=== PATIENT | female | born 2000 | race Caucasian/White ===

== ENCOUNTER 2018-07-04 14:29 | Inpatient (IN) | payer OTHER ==
[~2018-07-04] VITALS: Ht 162.6 cm; Wt 96.4 kg
[2018-07-04] MEDS ORDERED: PNV11TAB PO (15:04)
[2018-07-04 15:05] VITALS: BP 127/68; PULSE 102; RESP 18; Ht 162.6 cm; Wt 96.4 kg
[2018-07-04] MEDS ORDERED: ONDANSETRON 4 MG INJ IV PRN (16:00)
[2018-07-04] MEDS ORDERED: DEXTROSE 5%-0.225% NACL 1,000 ML IV SCH (16:00)
[2018-07-04] MEDS: ACETAMINOPHEN 325 MG TAB PO PRN ×2 (16:42→22:44)
[2018-07-04] MEDS: DEXTROSE 5%-0.45% NACL 1,000 ML IV SCH ×2 (17:11→18:53)
--- NOTE | 2018-07-04 17:34 | HP ---
Date/Time of Note Date/Time of Note DATE: 07/04/18 TIME: 17:32 OB - History Hx of Present Free Text/Dictation 18-year-old female 1 para 0 at 25 weeks and 5 days gestation admitted complaining of onset of nausea vomiting and diarrhea 2 AM Claims she is gone to bathroom at least 10 times for bowel movement Had multiple episodes of vomiting as well Estimated Due Date: Oct 12, 2018 : 1 Para: 0 Care: Good Care Ultrasounds: Normal mid trimester US Medical Complications: None Past Family/Social History * Past Medical, Surgical, Family and Obstetric Histories reviewed from chart. OB Admission Exam Vital Signs Vital Signs Vital Signs Date Temp Pulse Resp B/P (MAP) Pulse Ox O2 O2 Flow FiO2 Time Delivery Rate 07/04/18 100.4 102 18 127/68 Room Air 15:05 (87) Physical Exam HEENT: WNL Heart: Rhythm Normal Lungs: Clear, Equal Abdomen: WNL Extremities: Normal Reflexes: Normal Cervical Dilatation: None Effacement: 0% Station: Ballotable Membranes: Intact Heart Rate: 150's Contractions on Admission: None Last 72 hours Lab Results CBC & BMP 07/04/18 16:25 Liver Function Test 07/04/18 16:25 Alanine Aminotransferase (ALT/SGPT) 16 Albumin 4.4 Alkaline Phosphatase 111 Aspartate Amino Transf (AST/SGOT) 22 Direct Bilirubin 0.00 Total Protein 8.3 H OB Assessment/Plan Reason for admission: other (Gastroenteritis) Other Assessment: Possible gastroenteritis 25.5 weeks gestation Other plan: Patient with mildly elevated white count and left shift We will start patient on IV antibiotics Repeat CBC next JONATHON MAS MD Jul 04, 2018 17:34
[2018-07-04] MEDS ORDERED: LOPERAMIDE 2 MG CAP PO ONE (18:00)
[2018-07-04] MEDS: PIPER-TAZO 3.375 GM IV (PMX) 100 ML IVPB SCH (19:42)
[2018-07-05] MEDS ORDERED: LACTATED RINGER'S 500 ML IV ONE
[2018-07-05] MEDS: PIPER-TAZO 3.375 GM IV (PMX) 100 ML IVPB SCH ×4 (00:35→18:40)
[2018-07-05] MEDS: DEXTROSE 5%-0.45% NACL 1,000 ML IV SCH ×4 (03:18→21:53)
--- NOTE | 2018-07-05 12:19 | PN ---
Date/Time of Note Date/Time of Note DATE: 07/05/18 TIME: 12:17 OB Subjective Subjective Subjective Currently does not have complaint of nausea vomiting and or diarrhea OB Objective Objective Objective Patient is currently afebrile Vital signs are stable General physical exam is also unchanged Patient does not appears to be in acute distress Had elevated temperature at night before 200.4 and 100.2 OB Assessment/Plan Other Assessment: Gastroenteritis possibly because of bacterial contaminant Other plan: We will continue IV antibiotics Repeat CBC next day Anticipate discharge next day JONATHON MAS MD Jul 05, 2018 12:19
[2018-07-06] MEDS: PIPER-TAZO 3.375 GM IV (PMX) 100 ML IVPB SCH ×3 (00:12→11:29)
[2018-07-06] MEDS: DEXTROSE 5%-0.45% NACL 1,000 ML IV SCH (11:29)
--- NOTE | 2018-07-06 14:43 | DS ---
Date/Time of Note Date/Time of Note DATE: 07/06/18 TIME: 14:41 Obstetrical Discharge Record Final Diagnosis Final Diagnosis: not delivered Other Final Diagnosis Gastroenteritis Complications Other (Gastroenteritis) Condition on Discharge Physical Assessment Voiding: Yes Bowel Movement: Yes Breast: Soft, non-tender, Filling Fundus: Other () Abdomen and Incision: Abdomen is gravid Calf Tenderness: No Patient Condition: Good (Patient without diarrhea or nausea vomiting, will DC home on p.o. antibiotics) JONATHON MAS MD Jul 06, 2018 14:43
--- NOTE | 2018-07-06 14:44 | PD.PPDC ---
SECTIONIZER Discharge Instruction Provider Information Physician Information 18-year-old female with gastroenteritis at 25 weeks Condition [id number] Patient Condition: [id number] Good (Patient without diarrhea or nausea vomiting, will DC home on p.o. antibiotics) Activity/Restrictions [id number] Activity: [id number] Normal Activity May Shower Follow-up Follow-up with Physician: 1, 2, Day/Days Return to clinic for [id number] NIGHT SUPERVISOR Instructions: [id number] Fever greater than 101 Chills Comment: Refer back to OB triage in case of fever chills and excessive nausea vomiting JONATHON MAS MD Jul 06, 2018 14:44
[2018-07-06] MEDS ORDERED: CIPR500T4 PO (14:45)
[2018-07-06] MEDS ORDERED: CIPROFLOXACIN 500 MG TAB PO SCH (18:00)
== END 2018-07-06 15:31 | disposition home or self-care (01) | DRG 833 ==
LOC: OBT 14:29 → L-D 14:31 → OBT 17:30 → L-D 17:30 → PP1 07-06 11:59
PROVIDERS: ADMIT Obstetrics & Gynecology; ATTEND Obstetrics & Gynecology
DX: O99.612 Diseases of the digestive system complicating pregnancy, second trimester (principal); K52.9 Noninfective gastroenteritis and colitis, unspecified; Z3A.25 25 weeks gestation of pregnancy
CPT/HCPCS: 36415; 76817; 80053; 81003; 85025; 87040; 87086; 96360; 96374; G0463; J2405; J2543; J7042; J7120

== ENCOUNTER 2018-10-12 20:42 | Outpatient (CLI) | payer OTHER ==
[~2018-10-12] VITALS: Ht 162.6 cm; Wt 106.3 kg
[~2018-10-12 20:42] MED LIST: CIPR500T4 PO; PNV11TAB PO
[2018-10-12 20:50] VITALS: Ht 162.6 cm; Wt 106.3 kg
[2018-10-12 20:58] VITALS: BP 122/79; PULSE 93
--- NOTE | 2018-10-13 01:09 | TRIAGE ---
OB Triage Datetime Report Generated by CPN: 10/13/2018 01:08 Datetime: 10/13/2018 00:46 Labor Evaluation Frequency: IRREGULAR Monitor Mode: External Duration (sec)2399: 40 Pattern: Normal: <= 5 Contractions in 10 Minutes Resting Tone [place]: Relaxed Heart Rate FHR Baseline Rate: 135 Monitor Mode: External US Variability: Moderate 6-25 bpm Accelerations: 15X15 Decelerations: None Category: Category I Datetime: 10/13/2018 00:23 Monitor Mode: External US Datetime: 10/12/2018 23:40 Labor Evaluation Frequency: 2-15 Monitor Mode: External Duration (sec)2399: 40-70 Pattern: Normal: <= 5 Contractions in 10 Minutes Resting Tone [place]: Relaxed Heart Rate FHR Baseline Rate: 155 Monitor Mode: External US Variability: Moderate 6-25 bpm Accelerations: 15X15 Decelerations: None Category: Category I Datetime: 10/12/2018 22:50 Labor Evaluation Frequency: IRREGULAR Monitor Mode: External Duration (sec)2399: 40-60 Quality: Mild Pattern: Normal: <= 5 Contractions in 10 Minutes Resting Tone [place]: Relaxed Heart Rate FHR Baseline Rate: 165 Monitor Mode: External US FHR Baseline Changes: Tachycardia Variability: Moderate 6-25 bpm Accelerations: 15X15 Decelerations: None Category: Category II Datetime: 10/12/2018 22:24 Monitor Mode: External US Comments: PT REPORTED INCREASED MOVEMENT. Datetime: 10/12/2018 21:45 Stage of : OB Triage Labor Evaluation Frequency: 2-10 Monitor Mode: External Duration (sec)2399: 60-100 Quality: Mild Pattern: Normal: <= 5 Contractions in 10 Minutes Resting Tone [place]: Relaxed Heart Rate FHR Baseline Rate: 155 Monitor Mode: External US Variability: Moderate 6-25 bpm Accelerations: Prolonged Decelerations: None Category: Category I Datetime: 10/12/2018 21:39 Vaginal Exam Dilatation (cms): 0.0 Effacement (%): 0 Station: -3 Exam By: Juvenal LOTT Membrane Status: Intact Vaginal Bleeding: None Cervix, Consistency: Firm Cervix, Position: Posterior Datetime: 10/12/2018 20:55 Stage of : OB Triage Maternal Assessment Level of Consciousness: Keenly Alert, Responsive DTR's/Clonus: DTRs 2+; No Clonus Headache: Denies Blurred Vision: No Respiratory Effort: Unlabored; Regular Rhythm; Equal Expansion Breath Sounds, Left: Clear and Equal Breath Sounds, Right: Clear and Equal Nausea/Vomiting: Denies RUQ Epigastric Pain: Denies Lower Extremities Edema: None Degree: None Upper Extremities Edema: None Degree: None Facial Edema: None Temperature Route: Oral Fall Risk Assessment History of Falling: (0) No Secondary Diagnosis: (0) No Ambulatory Aid: (0) Bedrest/Nurse Assist IV Therapy: (0) No Gait: (0) Normal/Bedrest/Immobile Mental Status: (0) Oriented to Own Ability Fall Score: 0 Fall Risk Score Definition: No Risk: No action required Pain Assessment Pain Scale: 0 Pain Presence: None/Denies Pain Type: N/A Datetime: 10/12/2018 20:53 Monitor Mode: External Contraction Comments: APPLIED Monitor Mode: External US Comments: APPLIED Datetime: 10/12/2018 20:48 Time of Arrival: 10/12/2018 20:35 EGA: 40.0 Arrived By: Ambulatory Arrived From: Home Chief Complaint: NST BPP EFW Movement: Present Contractions: Denies/Absent Rupture of Membranes: Denies Vaginal Discharge: Denies Recent Sexual Intercouse: Denies Abdominal Trauma: Not Applicable Patient Complaints: None Time Provider Notified: 10/12/2018 23:00 Provider Notified: DR. LI Initial Plan: EFM, SVE, CALL OB Datetime: 07/06/2018 15:19 Monitor Mode: External Heart Rate FHR Baseline Rate: 145 Monitor Mode: External US FHR Baseline Changes: No Baseline Change Variability: Moderate 6-25 bpm Accelerations: 10X10 Decelerations: None Category: Category I Datetime: 07/06/2018 15:04 Stage of : Antepartum Temperature Route: Oral Pain Assessment Pain Scale: 0 Pain Presence: None/Denies Pain Goal: 0 Datetime: 07/06/2018 11:51 Labor Evaluation Frequency: 0 Monitor Mode: NO CONTRACTION FELT OR PALPATED Datetime: 07/06/2018 11:50 Stage of : Antepartum Temperature Route: Oral Pain Assessment Pain Scale: 0 Pain Presence: None/Denies Pain Goal: 0 Datetime: 07/06/2018 10:00 Labor Evaluation Frequency: 0 Monitor Mode: External Resting Tone [place]: Relaxed Heart Rate FHR Baseline Rate: 140 Monitor Mode: External US FHR Baseline Changes: No Baseline Change Variability: Moderate 6-25 bpm Decelerations: None Comments: aga Datetime: 07/06/2018 09:22 Assessment Type: Ongoing Assessment Maternal Assessment Level of Consciousness: Fully Conscious DTR's/Clonus: DTRs 2+; No Clonus Headache: Denies Blurred Vision: No Respiratory Effort: Unlabored; Regular Rhythm; Equal Expansion Breath Sounds, Left: Clear and Equal Breath Sounds, Right: Clear and Equal Nausea/Vomiting: Denies RUQ Epigastric Pain: Denies Facial Edema: None Fall Risk Assessment History of Falling: (0) No Secondary Diagnosis: (0) No Ambulatory Aid: (0) Bedrest/Nurse Assist IV Therapy: (20) Yes Gait: (0) Normal/Bedrest/Immobile Mental Status: (0) Oriented to Own Ability Fall Score: 20 Fall Risk Score Definition: No Risk: No action required Datetime: 07/06/2018 09:21 Assessment Type: Ongoing Assessment Maternal Assessment Level of Consciousness: Fully Conscious DTR's/Clonus: DTRs 2+; No Clonus Headache: Denies Blurred Vision: No Respiratory Effort: Unlabored; Regular Rhythm; Equal Expansion Breath Sounds, Left: Clear and Equal Breath Sounds, Right: Clear and Equal Nausea/Vomiting: Denies RUQ Epigastric Pain: Denies Facial Edema: None Fall Risk Assessment History of Falling: (0) No Secondary Diagnosis: (0) No Ambulatory Aid: (0) Bedrest/Nurse Assist Gait: (0) Normal/Bedrest/Immobile Mental Status: (0) Oriented to Own Ability Datetime: 07/06/2018 00:00 Comments: patient states good movement Datetime: 07/05/2018 22:12 Stage of : Antepartum Datetime: 07/05/2018 22:00 Comments: PATIENT REPORTS GOOD MOVEMENT Datetime: 07/05/2018 21:27 Heart Rate FHR Baseline Rate: 140 FHR Baseline Changes: No Baseline Change Variability: Moderate 6-25 bpm Decelerations: None Comments: monitoring fetus, not showing up on screen. appropriate for gestational age Datetime: 07/05/2018 21:26 Stage of : Antepartum Nausea/Vomiting: Denies Pain Presence: None/Denies Datetime: 07/05/2018 21:24 Comments: start nst Datetime: 07/05/2018 21:22 Contraction Comments: strip not recording. no contractions noted Heart Rate FHR Baseline Rate: 130 Decelerations: None Comments: aga Datetime: 07/05/2018 21:00 Monitor Mode: External Pattern: Normal: <= 5 Contractions in 10 Minutes Contraction Comments: patient denies abd cramping/pain Heart Rate FHR Baseline Rate: 145 Monitor Mode: External US FHR Baseline Changes: No Baseline Change Variability: Moderate 6-25 bpm Comments: appropriate for gestational age Datetime: 07/05/2018 20:20 Assessment Type: Ongoing Assessment Maternal Assessment Level of Consciousness: Fully Conscious Headache: Denies Blurred Vision: No Respiratory Effort: Unlabored; Regular Rhythm; Equal Expansion Breath Sounds, Left: Clear and Equal Breath Sounds, Right: Clear and Equal Nausea/Vomiting: Denies RUQ Epigastric Pain: Denies Lower Extremities Edema: None Degree: None Upper Extremities Edema: None Degree: None Facial Edema: None Fall Risk Assessment History of Falling: (0) No Secondary Diagnosis: (0) No Ambulatory Aid: (0) Bedrest/Nurse Assist IV Therapy: (20) Yes Gait: (0) Normal/Bedrest/Immobile Mental Status: (0) Oriented to Own Ability Fall Score: 20 Fall Risk Score Definition: No Risk: No action required Datetime: 07/05/2018 20:03 Temperature Route: Oral Pain Assessment Pain Scale: 0 Pain Presence: None/Denies Pain Type: N/A Datetime: 07/05/2018 20:00 Comments: patient reports good movement Datetime: 07/05/2018 18:45 Labor Evaluation Frequency: 0 Monitor Mode: External Datetime: 07/05/2018 18:00 Labor Evaluation Frequency: 0 Monitor Mode: External Datetime: 07/05/2018 17:10 Stage of : Antepartum Temperature Route: Oral Labor Evaluation Frequency: 0 Monitor Mode: External Pain Assessment Pain Scale: 0 Pain Presence: None/Denies Pain Goal: 0 Datetime: 07/05/2018 16:10 Labor Evaluation Frequency: 0 Monitor Mode: External Monitor Mode: PT STATES BABY MOVING Datetime: 07/05/2018 15:00 Labor Evaluation Frequency: none Monitor Mode: External Resting Tone [place]: Relaxed Datetime: 07/05/2018 12:16 Stage of : Antepartum Temperature Route: Oral Pain Assessment Pain Scale: 0 Pain Presence: None/Denies Pain Goal: 0 Datetime: 07/05/2018 11:00 Labor Evaluation Frequency: 0 Monitor Mode: External Datetime: 07/05/2018 10:00 Labor Evaluation Frequency: 0 Monitor Mode: External Datetime: 07/05/2018 09:08 Assessment Type: Ongoing Assessment Maternal Assessment Level of Consciousness: Fully Conscious DTR's/Clonus: DTRs 2+; No Clonus Headache: Denies Blurred Vision: No Respiratory Effort: Unlabored; Regular Rhythm; Equal Expansion Breath Sounds, Left: Clear and Equal Breath Sounds, Right: Clear and Equal Nausea/Vomiting: Denies RUQ Epigastric Pain: Denies Lower Extremities Edema: None Degree: None Upper Extremities Edema: None Degree: None Facial Edema: None Fall Risk Assessment History of Falling: (0) No Secondary Diagnosis: (0) No Ambulatory Aid: (0) Bedrest/Nurse Assist IV Therapy: (20) Yes Gait: (0) Normal/Bedrest/Immobile Mental Status: (0) Oriented to Own Ability Fall Score: 20 Fall Risk Score Definition: No Risk: No action required Datetime: 07/05/2018 09:00 Labor Evaluation Frequency: 0 Monitor Mode: External Datetime: 07/05/2018 08:55 Stage of : Antepartum Temperature Route: Oral Pain Assessment Pain Scale: 0 Pain Presence: None/Denies Pain Goal: 0 Datetime: 07/05/2018 08:53 Stage of : Antepartum Datetime: 07/05/2018 08:00 Monitor Mode: External Heart Rate FHR Baseline Rate: 145 Monitor Mode: External US FHR Baseline Changes: No Baseline Change Variability: Moderate 6-25 bpm Accelerations: 10X10 Decelerations: None Category: Category I Datetime: 07/05/2018 07:00 Labor Evaluation Frequency: none Monitor Mode: External Datetime: 07/05/2018 06:00 Labor Evaluation Frequency: none Monitor Mode: External Datetime: 07/05/2018 05:42 Resting Tone [place]: Relaxed Contraction Comments: Abdomen soft on palpation. No contractions palpated at this time. Pain Assessment Pain Scale: 0 Pain Presence: None/Denies Pain Type: N/A Pain Assessment Comments: Patient sleeping in between care. Patient appears comfortable. Datetime: 07/05/2018 05:00 Labor Evaluation Frequency: none Monitor Mode: External Datetime: 07/05/2018 04:25 Resting Tone [place]: Relaxed Contraction Comments: Abdomen soft on palpation. No contractions palpated at this time Pain Assessment Pain Scale: 0 Pain Presence: None/Denies Pain Type: N/A Pain Assessment Comments: Patient is sleeping in between care. Patient appears comfortable. Datetime: 07/05/2018 04:00 Labor Evaluation Frequency: none Monitor Mode: External Datetime: 07/05/2018 03:18 Stage of : Antepartum Temperature Route: Oral Datetime: 07/05/2018 03:16 Resting Tone [place]: Relaxed Contraction Comments: Abdomen soft on palpation. No contractions palpated. Pain Assessment Pain Scale: 0 Pain Presence: None/Denies Pain Type: N/A Pain Assessment Comments: Patient sleeping in between care. Datetime: 07/05/2018 03:00 Labor Evaluation Frequency: none Monitor Mode: External Datetime: 07/05/2018 02:24 Resting Tone [place]: Relaxed Contraction Comments: Abdomen soft on palpation. No contractions palpated. Pain Assessment Pain Scale: 0 Pain Presence: None/Denies Pain Type: N/A Pain Assessment Comments: Patient sleeping in between care. Patient appears comfortable. Datetime: 07/05/2018 02:00 Labor Evaluation Frequency: none Monitor Mode: External Datetime: 07/05/2018 01:00 Labor Evaluation Frequency: none Monitor Mode: External Datetime: 07/05/2018 00:46 Resting Tone [place]: Relaxed Contraction Comments: Abdomen soft on palpation. No contractions palpated. Pain Assessment Pain Scale: 0 Pain Presence: None/Denies Pain Type: N/A Datetime: 07/05/2018 00:45 Heart Rate FHR Baseline Rate: 150 Monitor Mode: External US (Annotations: removed) Variability: Moderate 6-25 bpm Accelerations: 10X10 Decelerations: None Comments: Some loss of contact (Annotations: Appropriate for gestational age.) Datetime: 07/05/2018 00:15 Stage of : Antepartum Temperature Route: Oral Datetime: 07/05/2018 00:12 Resting Tone [place]: Relaxed Contraction Comments: Abdomen soft on palpation. No contractions palpated at this time. Comments: Patient states she feels active movements at this time. Pain Assessment Pain Scale: 0 Pain Presence: None/Denies Pain Type: N/A Datetime: 07/05/2018 00:00 Labor Evaluation Frequency: none Monitor Mode: External Heart Rate FHR Baseline Rate: 155 Monitor Mode: External US Variability: Moderate 6-25 bpm Accelerations: Prolonged Decelerations: Variable Comments: Some loss of contact. Appropriate for gestational age. Datetime: 07/04/2018 23:47 Resting Tone [place]: Relaxed Contraction Comments: Abdomen soft on palpation. No contractions palpated. Comments: Patient states she feels active movement. Datetime: 07/04/2018 23:37 Stage of : Antepartum Datetime: 07/04/2018 23:29 Stage of : Antepartum Temperature Route: Oral Comments: Patient states she feels active movement. Pain Assessment Pain Scale: 0 Pain Presence: None/Denies Pain Type: N/A Datetime: 07/04/2018 23:00 Labor Evaluation Frequency: none Monitor Mode: External Heart Rate FHR Baseline Rate: 165 Monitor Mode: External US FHR Baseline Changes: Tachycardia Variability: Moderate 6-25 bpm Accelerations: None Decelerations: None Datetime: 07/04/2018 22:42 Contraction Comments: Abdomen soft on palpation. No contractions palpated at this time. Monitor Mode: External US (Annotations: reapplied) Datetime: 07/04/2018 22:26 Stage of : Antepartum Temperature Route: Oral Comments: Active movement noted on palpation. Patient states she feels active movement. Datetime: 07/04/2018 22:25 Heart Rate FHR Baseline Rate: 170 Monitor Mode: External US (Annotations: applied) Datetime: 07/04/2018 22:00 Labor Evaluation Frequency: none Monitor Mode: External Datetime: 07/04/2018 21:50 Resting Tone [place]: Relaxed Contraction Comments: Abdomen soft on palpation. No contractions palpated at this time. Pain Assessment Pain Scale: 4 Pain Presence: Intermittent Pain Type: Ache Pain Location: Head Pain Relief Measures: Comfort Measures Pain Assessment Comments: Patient refuses tylenol at this time. Patient states, "It's better." Datetime: 07/04/2018 21:14 Resting Tone [place]: Relaxed Datetime: 07/04/2018 21:00 Labor Evaluation Frequency: none Monitor Mode: External Datetime: 07/04/2018 20:07 Resting Tone [place]: Relaxed Contraction Comments: Abdomen soft on palpation. Pain Assessment Pain Scale: 5 Pain Presence: Intermittent Pain Type: Ache Pain Location: Head Pain Relief Measures: Comfort Measures Pain Assessment Comments: Patient refuses medication at this time Datetime: 07/04/2018 20:00 Labor Evaluation Frequency: none Monitor Mode: External Datetime: 07/04/2018 19:36 Stage of : Antepartum Assessment Type: Ongoing Assessment Maternal Assessment Level of Consciousness: Fully Conscious DTR's/Clonus: DTRs 2+; No Clonus Headache: Denies Blurred Vision: No Respiratory Effort: Unlabored; Regular Rhythm; Equal Expansion Breath Sounds, Left: Clear and Equal Breath Sounds, Right: Clear and Equal Nausea/Vomiting: Denies RUQ Epigastric Pain: Denies Lower Extremities Edema: None Degree: None Upper Extremities Edema: None Degree: None Facial Edema: None Temperature Route: Oral Fall Risk Assessment History of Falling: (0) No Secondary Diagnosis: (0) No Ambulatory Aid: (0) Bedrest/Nurse Assist IV Therapy: (20) Yes Gait: (0) Normal/Bedrest/Immobile Mental Status: (0) Oriented to Own Ability Fall Score: 20 Fall Risk Score Definition: No Risk: No action required Comments: Patient states she feels active movement. Pain Assessment Pain Scale: 0 Pain Presence: None/Denies Pain Type: N/A Pain Assessment Comments: Patient denies feeling contractions at this time Datetime: 07/04/2018 19:34 Monitor Mode: External Resting Tone [place]: Relaxed Contraction Comments: Abdomen soft on palpation. Datetime: 07/04/2018 19:12 Membrane Status: Intact Datetime: 07/04/2018 18:51 Pain Presence: None/Denies Datetime: 07/04/2018 18:07 Assessment Type: Admission Assessment Vaginal Bleeding: None Maternal Assessment Level of Consciousness: Fully Conscious DTR's/Clonus: DTRs 2+; No Clonus Headache: Denies Blurred Vision: No Respiratory Effort: Unlabored; Regular Rhythm; Equal Expansion Breath Sounds, Left: Clear and Equal Breath Sounds, Right: Clear and Equal Nausea/Vomiting: Denies RUQ Epigastric Pain: Denies Facial Edema: None Fall Risk Assessment History of Falling: (0) No Secondary Diagnosis: (0) No Ambulatory Aid: (0) Bedrest/Nurse Assist Gait: (0) Normal/Bedrest/Immobile Mental Status: (0) Oriented to Own Ability Datetime: 07/04/2018 15:08 Assessment Type: Triage Maternal Assessment Level of Consciousness: Fully Conscious DTR's/Clonus: DTRs 2+; No Clonus Headache: Denies Blurred Vision: No Respiratory Effort: Unlabored; Regular Rhythm; Equal Expansion Breath Sounds, Left: Clear and Equal Breath Sounds, Right: Clear and Equal Nausea/Vomiting: Denies RUQ Epigastric Pain: Denies Lower Extremities Edema: None Degree: None Upper Extremities Edema: None Degree: None Facial Edema: None Fall Risk Assessment History of Falling: (0) No Secondary Diagnosis: (0) No Ambulatory Aid: (0) Bedrest/Nurse Assist IV Therapy: (0) No Gait: (0) Normal/Bedrest/Immobile Mental Status: (0) Oriented to Own Ability Fall Score: 0 Fall Risk Score Definition: No Risk: No action required Datetime: 07/04/2018 15:07 Time of Arrival: 07/04/2018 14:25 EGA: 25.5 Arrived By: Ambulatory Arrived From: Office Chief Complaint: N/V DIARRHEA AND ABD PAIN Movement: Present Contractions: Denies/Absent Rupture of Membranes: Denies Vaginal Bleeding: None Vaginal Discharge: Denies Recent Sexual Intercouse: Denies Abdominal Trauma: Not Applicable Patient Complaints: Other Initial Plan: NST
--- NOTE | 2018-10-13 04:55 | PN ---
Triage Information Date/Time October 13, 2018 Reason for visit: Here today for NST BPP due to postdates Weeks of Gestation 40 weeks gestation /Para 1 para 0 Diabetes: none Hypertention: none Additional information 18-year-old G1, P0 with IUP at 40 weeks presented for NST/BPP due to postdates . She denies any leaking of fluid, vaginal bleeding or decreased movement or any other complaints. Objective Vital Signs Date Temp Pulse Resp B/P (MAP) Pulse Ox O2 O2 Flow FiO2 Time Delivery Rate 10/12/18 98.4 93 122/79 Room Air 20:58 (93) Heart Rate: 130's Heart Rate Comments Category 1 Contractions: None Exam Appearance: Alert and oriented x4 does not appear to be in any acute distress Abdomen: Soft, gravid, fundal height consider gestational age NST: Category 1 Vaginal exam 0/0/-3 Results/Medications Imaging Results PROCEDURE: US OB biophysical profile. CLINICAL INDICATION: Maternal pain TECHNIQUE: Multiple sonographic images of the pelvis were obtained. The images were reviewed on a PACS workstation. COMPARISON: None FINDINGS: Noted is a single intrauterine gestation in cephalic lie with positive heart beat. The amniotic fluid index measures 8.5 cm. Placenta is anterior grade II. Biophysical profile: movement 2/2 tone 2/2. breathing 2/2 ESSIE 2/2 Total 12/01 IMPRESSION: Normal biophysical profile. Disposition: Discharge Assessment/Plan IUP at 40 weeks Postdate Not in labor, no evidence of problem testing including NST/BPP reassuring Patient discharged home in stable condition with a plan to return to triage again in 3 days for NST/BPP I recommended the patient to be seen by her primary OB as well within 48 hours after discharge from the hospital with a strict labor precautions kick count Patient verbalized understanding. All questions were answered to patient with satisfaction. MELINDA MARTINES MD Oct 13, 2018 04:55
== END 2018-10-13 00:57 | disposition home or self-care (01) ==
LOC: OBT 20:42 → L-D 20:43 → OBT 10-13 00:57
PROVIDERS: ATTEND Obstetrics & Gynecology
DX: O36.8330 Maternal care for abnormalities of the fetal heart rate or rhythm, third trimester, not applicable or unspecified (principal); O48.0 Post-term pregnancy; Z3A.40 40 weeks gestation of pregnancy
CPT/HCPCS: 76815; 76818; Z7500; G0463

== ENCOUNTER 2018-10-17 10:27 | Inpatient (IN) | payer OTHER ==
[~2018-10-17] VITALS: Ht 165.1 cm; Wt 106.8 kg
[~2018-10-17 10:27] MED LIST changes: -CIPR500T4 PO
--- NOTE | 2018-10-17 10:39 | TRIAGE ---
OB Triage Datetime Report Generated by CPN: 10/17/2018 10:39 Datetime: 10/17/2018 10:17 Assessment Type: Triage Time of Arrival: 10/17/2018 10:17 EGA: 40.5 Arrived By: Ambulatory Arrived From: Home Chief Complaint: POST DATES WITH BACK PAIN Movement: Present Contractions: Denies/Absent Rupture of Membranes: Denies Vaginal Discharge: Denies Recent Sexual Intercouse: Denies Abdominal Trauma: Not Applicable Additional Patient Complaints: NONE Time Provider Notified: 10/17/2018 10:17 Provider Notified: JEN Initial Plan: MONITOR Maternal Assessment Level of Consciousness: Keenly Alert, Responsive DTR's/Clonus: DTRs 2+; No Clonus Headache: Denies Blurred Vision: No Respiratory Effort: Unlabored; Regular Rhythm; Equal Expansion Breath Sounds, Left: Clear and Equal Breath Sounds, Right: Clear and Equal Nausea/Vomiting: Denies RUQ Epigastric Pain: Denies Lower Extremities Edema: None Degree: None Upper Extremities Edema: None Degree: None Facial Edema: None Fall Risk Assessment History of Falling: (0) No Secondary Diagnosis: (0) No Ambulatory Aid: (0) Bedrest/Nurse Assist IV Therapy: (0) No Gait: (0) Normal/Bedrest/Immobile Mental Status: (0) Oriented to Own Ability Fall Score: 0 Fall Risk Score Definition: No Risk: No action required Datetime: 10/12/2018 20:55 Fall Score: 0 Fall Risk Score Definition: No Risk: No action required Datetime: 10/12/2018 20:48 EGA: 40.0 Datetime: 07/06/2018 09:22 Fall Score: 20 Fall Risk Score Definition: No Risk: No action required Datetime: 07/05/2018 20:20 Fall Score: 20 Fall Risk Score Definition: No Risk: No action required Datetime: 07/05/2018 09:08 Fall Score: 20 Fall Risk Score Definition: No Risk: No action required Datetime: 07/04/2018 19:36 Fall Score: 20 Fall Risk Score Definition: No Risk: No action required Datetime: 07/04/2018 15:08 Fall Score: 0 Fall Risk Score Definition: No Risk: No action required Datetime: 07/04/2018 15:07 EGA: 25.5
[2018-10-17 10:40] VITALS: Ht 165.1 cm; Wt 106.8 kg
[2018-10-17] MEDS: LACTATED RINGER'S 1,000 ML IV SCH ×3 (11:51→17:19)
[2018-10-17] MEDS ORDERED: LIDOCAINE 1% (MPF) 30 ML INJ INJ PRN (12:00)
[2018-10-17] MEDS ORDERED: OXYTOCIN 30 UNITS/LR 500 ML IV PRN ×2 (12:00→23:00)
[2018-10-17] MEDS ORDERED: CARBOPROST 250 MCG INJ IM PRN ×2 (12:00→23:00)
[2018-10-17] MEDS ORDERED: MINERAL OIL LIGHT 10 ML VIAL TOP ONE (12:00)
[2018-10-17] MEDS ORDERED: MISOPROSTOL 200 MCG TAB PR PRN ×2 (12:00→23:00)
[2018-10-17] MEDS ORDERED: METHYLERGONOVINE 0.2 MG INJ IM PRN ×2 (12:00→23:00)
[2018-10-17] MEDS ORDERED: OXYTOCIN 30 UNITS/LR 500 ML IV SCH ×3 (12:00)
[2018-10-17] MEDS ORDERED: AMPICILLIN 2 GM/NS (PMX) 100 ML IV ONE (12:00)
[2018-10-17] MEDS ORDERED: BUTORPHANOL 2 MG INJ IV PRN (12:00)
[2018-10-17] MEDS ORDERED: AMPICILLIN 1 GM/NS (PMX) 50 ML IV SCH (16:00)
--- NOTE | 2018-10-17 16:57 | PREAC ---
Date/Time of Note Date/Time of Note DATE: 10/17/18 TIME: 16:55 Anesthesia Eval and Record Evaluation Time Pre-Procedure Interview DATE: 10/17/18 TIME: 16:55 Age 18 Sex female NPO: 8 hrs Preoperative diagnosis IUP Planned procedure L&D Epidural Past Medical History Past Medical History: Includes : : Surgery & Anesthesia Issues No known issue Meds Anticoagulation: No Beta Jyotsna within 24 hr: No Reason Beta Jyotsna not given: Pt. not on B-Jyotsna Reported Medications [id number] Lpoyhnin-LH-OEM ( 19) 1 Each Tablet, 1 TAB PO DAILY, TAB 07/04/18 Discontinued Scripts Ciprofloxacin Hcl* (Ciprofloxacin Hcl*) 500 Mg Tablet, 500 MG PO BID@06,18, #10 TAB 0 Refills Prov:JONATHON MAS MD 07/06/18 Current Medications Lactated Ringer's 1,000 ml @ 125 mls/hr Q8H IV Last administered on 10/17/18at 16:13; Admin Dose 125 MLS/HR; Start 10/17/18 at 11:31 Butorphanol Tartrate (Stadol) 2 mg Q2H PRN IV .PAIN SCALE 6-10; Start 10/17/18 at 12:00 Lidocaine (Xylocaine 1% (Mpf)) 30 ml ONCE PRN INJ .EPISIOTOMY; Start 10/17/18 at 12:00 Oxytocin/Lactated Ringer's 500 ml @ 500 mls/hr ONCE POST IV ; Start 10/17/18 at 12:00 Oxytocin/Lactated Ringer's 500 ml @ 125 mls/hr POST IV ; Start 10/17/18 at 12:00 Oxytocin/Lactated Ringer's 500 ml @ 0 mls/hr ONCE PRN IV .VAGINAL BLEEDING; Start 10/17/18 at 12:00 Methylergonovine Maleate (Methergine) 0.2 mg ONCE PRN IM .VAGINAL BLEEDING; Start 10/17/18 at 12:00 Carboprost Tromethamine (Hemabate) 250 mcg ONCE PRN IM .VAGINAL BLEEDING; Start 10/17/18 at 12:00 Misoprostol (Cytotec) 1,000 mcg ONCE PRN MT .VAGINAL BLEEDING; Start 10/17/18 at 12:00 Oxytocin/Lactated Ringer's 500 ml @ 0 mls/hr FOR AUGMENTATION IV Last administered on 10/17/18at 12:19; Admin Dose 1 MLS/HR; Start 10/17/18 at 12:00 Lactated Ringer's 1,000 ml @ 1,000 mls/hr Q1H ONCE IV Last administered on 10/17/18at 16:37; Admin Dose 1,000 MLS/HR; Start 10/17/18 at 17:00; Stop 10/17/18 at 17:59 Meds reviewed: Yes Allergies Coded Allergies: No Known Allergy (Unverified , 10/17/18) Allergies Reviewed: Yes Labs/Studies Labs Reviewed: Reviewed by anesthesiologist Result Diagram: 10/17/18 1140 Laboratory Tests 10/17/18 11:40 Blood Bank Test 10/17/18 11:40 Antibody Screen NEGATIVE Blood Type A POSITIVE Rh Immune Globulin Candidate NO test: Positive Pre-procedure Exam Last vitals BP:112/56, P:88, Spo2:100%, T:98,9 Airway: Adequate mouth opening, Adequate thyromental dist Mallampati: Mallampati II Teeth: Normal Lung: Normal Heart: Normal ASA Physical Status ASA physical status: 2 Emergency: None Planned Anesthetic Neuraxial: Epidural Planned Pain Management Epidural, Parenteral pain med Pre-operative Attestations Prior to commencing anesthesia and surgery, the patient was re-evaluated, there was verification of: *The patient's identity *The results of appropriate recent lab work and preoperative vital signs *The above evaluation not changing prior to induction *Anesthetic plan, risk benefits, alternative and complications discussed with patient/family; questions answered; patient/family understands, accepts and wishes to proceed. AIMEE DAY MD Oct 17, 2018 16:57
[2018-10-17] MEDS ORDERED: FENTAnyl 2MCG/ML-ROPIV 0.2% 100 ML ONE (16:58)
[2018-10-17] MEDS ORDERED: LACTATED RINGER'S 1,000 ML IV ONE (17:00)
--- NOTE | 2018-10-17 17:26 | HP ---
Date/Time of Note Date/Time of Note DATE: 10/17/18 TIME: 17:21 OB - History Hx of Present Free Text/Dictation 18-year-old female 1 para 0 at 40 weeks and 5 days admitted for induction of labor Last Menstrual Period: Jan 13, 2018 Estimated Due Date: Oct 12, 2018 : 1 Para: 0 Care: Good Care Ultrasounds: Normal mid trimester US Obstetrical Complications: None Medical Complications: None Past Family/Social History * Past Medical, Surgical, Family and Obstetric Histories reviewed from chart. Blood Type: A+ Rubella: immune RPR/VDRL: Negative GBS Status: Negative HBsAG: Negative OB Admission Exam Physical Exam HEENT: WNL Heart: Rhythm Normal Lungs: Clear, Equal Abdomen: WNL Extremities: Normal Reflexes: Normal Cervical Dilatation: 2cm Effacement: 75% Station: -3 Membranes: Intact Heart Rate: 140's Accelerations: Accelerations Present Decelerations: No Decelerations Varibility: Marked Contractions on Admission: 6-10 Minutes Apart Last 72 hours Lab Results CBC & BMP 10/17/18 11:40 OB Assessment/Plan Other Assessment: Post term For the plus weeks gestation Other plan: Will start on Pitocin augmentation of the labor JONATHON MAS MD Oct 17, 2018 17:26
[2018-10-17] MEDS ORDERED: ACETAMINOPHEN 500 MG TAB PO STA (21:10)
[2018-10-17] MEDS ORDERED: KETOROLAC 30 MG INJ IV STA (21:10)
--- NOTE | 2018-10-17 21:10 | LDN ---
Date/Time of Note Date/Time of Note DATE: 10/17/18 TIME: 21:08 Delivery Summary Normal spontaneous vaginal delivery of a viable over intact perineum Weeks of Gestation 40 weeks and 5 days Placenta Delivered: Spontaneously, Intact & Complete Meconium: none Episiotomy: No Perineal laceration: 2 Laceration repair: Second-degree perineal laceration was repaired in layers using 2-0 Vicryl in deeper layers and 2 chromic and superficial layer Anesthesia type: Epidural Estimated blood loss: 300 Sponge & Needle done & correct: Yes All needle counts correct: Yes Any foreign bodies felt in the: No Infant Delivery Information Sex Infant Sex: female Apgars 1 Minute: 9 5 Minute: 9 Suctioning Nose & mouth suctioned at radha: Yes Delee suction performed: No Umbilical Cord Umbilical cord with: 3 Vessels Cord presentations: no nuchal cord Cord Blood was obtained: Yes Mother & Baby Disposition Disposition Mom & Baby to Maternity; Good: Yes (Mother and baby were recovered in good condition) Mom transferred to: Other (Maternity floor) Baby to NICU: No JONATHON MAS MD Oct 17, 2018 21:10
[2018-10-17] MEDS ORDERED: BENZOCAINE 20% 56 ML SPRAY TOP PRN (23:00)
[2018-10-17] MEDS ORDERED: DIBUCAINE 1% 30 GM OINT TOP PRN (23:00)
[2018-10-17] MEDS ORDERED: LANOLIN HPA 1 PKT TOP PRN (23:00)
[2018-10-17] MEDS ORDERED: ZOLPIDEM 5 MG TAB PO PRN (23:00)
[2018-10-17] MEDS ORDERED: HYDROCODONE/APAP (5/325) TAB PO PRN ×2 (23:00)
[2018-10-17] MEDS ORDERED: WITCH HAZEL/GLYCERIN PAD PR PRN (23:00)
[2018-10-17 23:15] VITALS: BP 124/73; PULSE 70; RESP 18
[2018-10-17] MEDS: CEPHALEXIN 500 MG CAP PO SCH (23:58)
[2018-10-18] MEDS: LACTATED RINGER'S 1,000 ML IV* SCH ×4 (01:31→21:29)
[2018-10-18 04:20] VITALS: BP 130/76; PULSE 80; RESP 18
[2018-10-18] MEDS: IBUPROFEN 600 MG TAB PO SCH ×5 (06:04→23:39)
[2018-10-18] MEDS: CEPHALEXIN 500 MG CAP PO SCH ×4 (06:04→23:39)
--- NOTE | 2018-10-18 06:46 | PAC ---
Date/Time of Note Date/Time of Note DATE: 10/18/18 TIME: 06:46 Post-Anesthesia Notes Post-Anesthesia Note Last documented vital signs Vital Signs Date Temp Pulse Resp B/P (MAP) Pulse Ox O2 O2 Flow FiO2 Time Delivery Rate 10/18/18 98.6 80 18 130/76 Room Air 04:20 (94) Activity: WNL Respiratory function: WNL Cardiovascular function: WNL Mental status: Baseline Pain reasonably controlled: Yes Hydration appropriate: Yes Nausea/Vomiting absent: Yes Comments BP:122/56, P:76, Spo2:100%, T:98,8 AIMEE DAY MD Oct 18, 2018 06:46
[2018-10-18] MEDS: MAGNESIUM HYDROXIDE 30ML CUP PO SCH ×2 (09:00→21:26)
[2018-10-18 10:35] VITALS: BP 124/61; PULSE 69; RESP 18
[2018-10-18] MEDS: SENNA/DOCUSATE NA (8.6MG/50MG) TAB PO SCH ×2 (12:07→21:26)
[2018-10-18 16:00] VITALS: BP 130/66; PULSE 70; RESP 18
[2018-10-18 21:00] VITALS: BP 123/58; PULSE 81; RESP 18
[2018-10-19 04:00] VITALS: BP 112/60; PULSE 69; RESP 17
[2018-10-19] MEDS: CEPHALEXIN 500 MG CAP PO SCH ×2 (05:46→11:59)
[2018-10-19] MEDS: IBUPROFEN 600 MG TAB PO SCH ×2 (05:46→11:59)
[2018-10-19] MEDS: LACTATED RINGER'S 1,000 ML IV* SCH (06:41)
[2018-10-19 08:30] VITALS: BP 111/66; PULSE 63; RESP 18
[2018-10-19] MEDS: SENNA/DOCUSATE NA (8.6MG/50MG) TAB PO SCH (09:00)
[2018-10-19] MEDS ORDERED: MEASLES,MUMPS,RUBELLA VACCINE INJ SC* ONE (09:00)
[2018-10-19] MEDS: MAGNESIUM HYDROXIDE 30ML CUP PO SCH (09:00)
[2018-10-19] MEDS ORDERED: DIPHTH/TET/ACEL PERTUSS (ADULT) 0.5 ML VIAL IM* ONE (09:00)
[2018-10-19] MEDS ORDERED: VARICELLA VACCINE LIVE/PF 1,350 UNIT/0.5 ML ML SC* ONE (09:00)
--- NOTE | 2018-10-19 13:40 | DS ---
Date/Time of Note Date/Time of Note Late entry DATE: 10/18/18 Obstetrical Discharge Record Final Diagnosis Final Diagnosis: Term delivered Other Final Diagnosis Status post vaginal delivery Vaginal Delivery Obstetrical Delivery: Spontaneous, Laceration, Repaired Complications Augmentation: Yes Condition on Discharge Physical Assessment Last Vitals: See nurse's notes Voiding: Yes Bowel Movement: Yes Breast: Soft, non-tender, Filling Fundus: Firm Abdomen and Incision: Abdomen is soft with firm fundus Episiotomy: Perineum is clean and appears to be healing well Calf Tenderness: No Patient Condition: Good JONATHON MAS MD Oct 19, 2018 13:40
--- NOTE | 2018-10-19 13:41 | PD.PPDC ---
LAND CLASSIFIER Discharge Instruction Provider Information Physician Information 18-year-old female had vaginal delivery Diagnosis [id number] Final Diagnosis: [id number] Status post vaginal delivery Condition [id number] Patient Condition: Hxrlg2b Good Diet Labpm9Mk Diet: Lrlyn0u Resume Regular Diet Activity/Restrictions [id number] Activity: Xforo3w Normal Activity May Shower Omyxy9Hc Restrictions: Wxnle5d Nothing in the Vagina [id number] Return to Work or School: Bfsph9x Dec 05, 2018 Follow-up Follow-up with Physician: 2, 4, Week/Weeks (In clinic) Return to clinic for [id number] OB Instructions: Mlbxe2a Breast Tenderness Depression Comment: Week rest for 6 weeks JONATHON MAS MD Oct 19, 2018 13:41
[2018-10-19] MEDS ORDERED: IBUP-1542 PO (13:42)
--- NOTE | 2018-10-20 16:55 | DELSUM ---
Delivery Summary A-C Datetime Report Generated by CPN: 10/20/2018 16:55 DELIVERY PERSONNEL Sign Carpenter: Colt, Melly MATERNAL INFORMATION Delivery Anesthesia: Epidural Medications in Delivery: PITOCIN 30 UNITS LR 500ML Delivery QBL (ml): 300 Placenta Cultured: No Maternal Complications: None LABOR SUMMARY EDC: 10/12/2018 00:00 No. Babies in Womb: 1 Attempted: No Labor Anesthesia: None LABOR INFORMATION Reason for Induction: Postterm Onset of Labor: 10/17/2018 06:00 Complete Dilatation: 10/17/2018 20:29 Group B Beta Strep: Negative Antibiotics # of Doses: 0 Steroids Given: None Reason Steroids Not Administered: Not Applicable MEMBRANES Membranes Rupture Method: Spontaneous Rupture of Membranes: 10/17/2018 15:26 Length of Rupture (hr): 5.40 Amniotic Fluid Color: Clear Amniotic Fluid Amount: Large Amniotic Fluid Odor: Normal STAGES OF LABOR Stage 1 hr: 14 Stage 1 min: 29 Stage 2 hr: 0 Stage 2 min: 21 Stage 3 hr: 0 Stage 3 min: 3 Total Time in Labor hr: 14 Total Time in Labor min: 53 VAGINAL DELIVERY Episiotomy: None Laceration Extension: Second Degree Laceration Type: Perineal Laceration Repair: Yes Initial Vag Sponge Count: 10 Final Vag Sponge Count: 10 Initial Vag Sharps Count: 1 Final Vag Sharps Count: 3 Sponge Count Correct: Yes; Vaginal Sweep Performed Sharps Count Correct: Yes BABY A INFORMATION Infant Delivery Date/Time: 10/17/2018 20:50 Method of Delivery: Vaginal Born in Route : No : N/A Forceps: N/A Vacuum Extraction: N/A Shoulder Dystocia : No SHOULDER DYSTOCIA BABY A Delivery Date/Time: 10/17/2018 20:50 PRESENTATION/POSITION BABY A Presentation: Cephalic Cephalic Presentation: Vertex Vertex Position: Left Occipital Anterior Breech Presentation: N/A PLACENTA INFORMATION BABY A Placenta Delivery Time : 10/17/2018 20:53 Placenta Method of Delivery: Spontaneous Placenta Status: Delivered SCORES BABY A Heart Rate 1 min: >100 bpm Resp Effort 1 min: Good Cry Reflex Irritability 1 min: Cough/Sneeze/Pulls Away Muscle Tone 1 min: Active Motion Color 1 min: Body [place], Extremit Blue Resuscitation Effort 1 min: Tactile Stimulation SCORE 1 MIN: 9 Heart Rate 5 min: >100 bpm Resp Effort 5 min: Good Cry Reflex Irritability 5 min: Cough/Sneeze/Pulls Away Muscle Tone 5 min: Active Motion Color 5 min: Body [place], Extremit Blue Resuscitation Effort 5 min: Tactile Stimulation SCORE 5 MIN: 9 INFANT INFORMATION BABY A Gestational Age at Delivery: 40.5 Gestational Status: Full Term- 39- 40.6 Weeks Outcome : Liveborn, with signs of life Condition : Stable Sex: Female IDENTIFICATION/MEDS BABY A ID Band Number: [id number] ID Band Location: Right Leg; Left Arm Sensor Applied: Yes Sensor Number: [id number] Sensor Location : Cord Clamp Vitamin K Given : Not Given Erythromycin Given: Not Given WEIGHT/LENGTH BABY A Infant Birthweight (gm): 3830 Infant Weight (lb): 8 Infant Weight (oz): 7 Length (in): 20.00 Length (cm): 50.80 CORD INFORMATION BABY A No. Cord Vessels: 3 Nuchal Cord : N/A Cord Blood Taken: Yes Infant Suction: Mouth; Nose ASSESSMENT BABY A Infant Complications: Multiple Variable Decels Physical Findings at Delivery: Within Normal Limits Infant Respirations: Appears Normal Heating Engineer/ALS Called : Yes Care By: JEANETTE Transferred To: Remains with Mother
== END 2018-10-19 16:35 | disposition home or self-care (01) | DRG 807 ==
LOC: L-D 10:27 → OBT 10:27 → L-D 10:32 → PP1 22:37
PROVIDERS: ADMIT Obstetrics & Gynecology; ATTEND Obstetrics & Gynecology
PROC: 10E0XZZ Delivery of Products of Conception, External Approach (ICD-10-PCS; principal; 2018-10-17)
PROC: 0KQM0ZZ Repair Perineum Muscle, Open Approach (ICD-10-PCS; 2018-10-17)
DX: O48.0 Post-term pregnancy (principal); Z37.0 Single live birth; Z3A.40 40 weeks gestation of pregnancy; O70.1 Second degree perineal laceration during delivery
CPT/HCPCS: 62322; 76818; 85025; 85610; 85730; 86592; 86850; 86900; 86901; 87340; 90716; 99464; G0463; J0290; J1885; J2590; J3010; J7120